=== PATIENT | female | born 1970 | race Two or more races ===

== ENCOUNTER 2021-01-17 04:32 | Day surgery (SDC) | payer BC ==
[2021-01-13 10:17] VITALS: BMI 23.1
[2021-01-17] MEDS ORDERED: ceFAZolin SODIUM 1 GM VIAL ONE (09:31)
[2021-01-17 09:34] LABS: BLOOD UREA NITROGEN 11.1 mg/dL (7-18)
[2021-01-17] MEDS ORDERED: PROMETHAZINE HCL 25 MG/1 ML VIAL IVPB PRN (09:35)
[2021-01-17] MEDS ORDERED: ONDANSETRON 4 MG/2 ML VIAL IVPUSH PRN ×2 (09:35→14:46)
[2021-01-17 09:37] LABS: CREATININE 1.1 mg/dL (0.55-1.3)
[2021-01-17] MEDS ORDERED: LACTATED RINGERS SOLUTION 1,000 ML IV SCH (09:45)
[2021-01-17] MEDS ORDERED: BUPIVACAINE HCL/PF 0.5% (5MG/ML) 10 ML VIAL ONE (10:16)
[2021-01-17] MEDS ORDERED: INDOCYANINE GREEN 25 MG/10 ML VIAL IVPUSH ONE (10:21)
[2021-01-17] MEDS ORDERED: PROPOFOL 20 ML ONE (11:16)
[2021-01-17] MEDS ORDERED: ROCURONIUM BROMIDE 50 MG/5 ML SYRINGE ONE ×2 (11:16→13:16)
[2021-01-17] MEDS ORDERED: LIDOCAINE HCL/PF 2% SDV 5ML VIAL ONE (11:16)
[2021-01-17] MEDS ORDERED: MIDAZOLAM HCL 2 MG/2 ML SINGLE DOSE VIAL ONE ×2 (11:35)
[2021-01-17] MEDS ORDERED: ceFAZolin SODIUM 1 GM VIAL IVPB ONE (12:03)
[2021-01-17] MEDS ORDERED: DEXAMETHASONE SOD PHOSPHATE 4 MG/1 ML VIAL ONE (12:04)
[2021-01-17] MEDS ORDERED: BUPIVACAINE HCL/PF 0.5% (5 MG/ML) 30 ML VIAL IJ ONE (12:15)
[2021-01-17] MEDS ORDERED: KETOROLAC TROMETHAMINE 30 MG/1 ML VIAL ONE (13:57)
[2021-01-17] MEDS ORDERED: GLYCOPYRROLATE 0.2 MG/1 ML VIAL ONE (14:03)
[2021-01-17] MEDS ORDERED: NEOSTIGMINE METHYLSULFATE 0.5 MG/ML - 10 ML MDV ONE (14:03)
[2021-01-17] MEDS ORDERED: oxyCODONE HCL 5 MG TABLET PO PRN ×2 (14:35→14:45)
[2021-01-17] MEDS ORDERED: ACETAMINOPHEN 1000 MG/100 ML VIAL (NON FORMULARY) IVPB ONE (14:41)
[2021-01-17] MEDS ORDERED: ACETAMINOPHEN INJECTION 100 ML IVPB ONE (14:50)
[2021-01-17] MEDS: ACETAMINOPHEN 500 MG TABLET (FP) PO SCH ×2 (14:50→21:11)
[2021-01-17] MEDS ORDERED: HYDROmorphone HCl 2 MG/ML VIAL IVPUSH ONE ×4 (15:20→16:20)
[2021-01-17] MEDS ORDERED: HYDROmorphone HCl 2 MG/ML VIAL ONE (15:25)
[2021-01-17] MEDS ORDERED: HYDROmorphone HCL CARPU-JECT 2 MG/1 ML DISP.SYRIN IVPUSH ONE (15:32)
[2021-01-17] MEDS ORDERED: CEFAZOLIN 2 GM/D5W 2 GM/50 ML ML IVPB ONE (15:45)
[2021-01-17] MEDS: CEFAZOLIN 1 GM/D5W 1 GM/50 ML BAG IVPB SCH (21:13)
[2021-01-17] MEDS ORDERED: KETOROLAC TROMETHAMINE 15 MG/ML VIAL IVPUSH SCH (23:00)
[2021-01-17] MEDS: KETOROLAC TROMETHAMINE 30 MG/1 ML VIAL IVPUSH SCH (23:55)
[2021-01-18] MEDS: CEFAZOLIN 1 GM/D5W 1 GM/50 ML BAG IVPB SCH (03:03)
[2021-01-18] MEDS: ACETAMINOPHEN 500 MG TABLET (FP) PO SCH ×2 (06:49→09:40)
[2021-01-18] MEDS: KETOROLAC TROMETHAMINE 30 MG/1 ML VIAL IVPUSH SCH (08:05)
[2021-01-18 09:42] LABS: HEMATOCRIT 28.7 % (32.4-45.2); HEMOGLOBIN 8.5 GM/dL (10.7-15.3); MCH 22.8 pg (25.7-33.7); MCHC 29.5 g/dl (32.0-36.0); MEAN CELL VOLUME 77.3 fl (80-96); MEAN PLT VOLUME 8.5 fl (7.5-11.1); PLATELET COUNT 373 10^3/uL (134-434); RBC 3.71 M/mm3 (3.60-5.2); RDW 33.6 % (11.6-15.6); WHITE BLOOD COUNT 14.6 K/mm3 (4.0-10.0)
[2021-01-18] MEDS ORDERED: PATIENT'S OWN MEDICATION (NON-FORMULARY) (Iron,Carb/Vit C/Vit B12/Folic [Iron 100 Plus Tab PO SCH (10:00)
[2021-01-18] MEDS ORDERED: ENOXAPARIN NA (PORCINE) 40 MG/0.4 ML DISP.SYRIN SQ SCH (10:00)
[2021-01-18] MEDS ORDERED: MULTIVITAMINS (DAILY MVI) TABLET (FP) PO SCH (10:00)
[2021-01-18 10:08] LABS: BLOOD UREA NITROGEN 15.7 mg/dL (7-18)
[2021-01-18 10:10] LABS: CREATININE 1.2 mg/dL (0.55-1.3)
[2021-01-18 10:23] LABS: CALCIUM 8.8 mg/dL (8.5-10.1)
[2021-01-18 14:10] LABS: MAGNESIUM 1.9 mg/dL (1.8-2.4)
[2021-01-18 14:14] LABS: PHOSPHOROUS 4.4 mg/dL (2.5-4.9)
[2021-01-18 16:44] VITALS: BP 112/53; PULSE 48; TEMP 97.7
== END 2021-01-18 16:45 | disposition home or self-care (01) ==
LOC: JASU-SURG 04:32 → JASUSAT 04:32 → J3W 17:32 → JASUSAT 01-18 16:45
PROVIDERS: ATTEND Obstetrics & Gynecology Gynecologic Oncology
PROC: 0UT7FZZ Resection of Bilateral Fallopian Tubes, Via Natural or Artificial Opening With Percutaneous Endoscopic Assistance (ICD-10-PCS; 2021-01-17)
PROC: 8E0W4CZ Robotic Assisted Procedure of Trunk Region, Percutaneous Endoscopic Approach (ICD-10-PCS; 2021-01-17)
PROC: 0UT9FZZ Resection of Uterus, Via Natural or Artificial Opening With Percutaneous Endoscopic Assistance (ICD-10-PCS; principal; 2021-01-17 10:30)
PROC: 0UT1FZZ Resection of Left Ovary, Via Natural or Artificial Opening With Percutaneous Endoscopic Assistance (ICD-10-PCS; 2021-01-17 10:30)
DX: N92.0 Excessive and frequent menstruation with regular cycle (principal); D25.9 Leiomyoma of uterus, unspecified; N83.202 Unspecified ovarian cyst, left side; N80.0 Endometriosis of uterus; D64.9 Anemia, unspecified
CPT/HCPCS: 36415; 80048; 81025; 83540; 83550; 83735; 84100; 84443; 85027; 86850; 86900; 86901; 88108; 88305-TC; 88307-TC; 93005; 93010; 94760; J0131

== ENCOUNTER → 2021-07-04 | Day surgery (SDC) | payer BC ==
[2021-07-03 12:20] VITALS: BMI 22.3
[~2021-07-04] MED LIST: PROPOFOL 20 ML ONE
[2021-07-04 12:03] VITALS: TEMP 98.1
[2021-07-04 12:46] VITALS: BP 107/50; PULSE 78
== END | disposition home or self-care (01) ==
LOC: FASU 10:38
PROVIDERS: ATTEND Internal Medicine Gastroenterology
PROC: 0DJD8ZZ Inspection of Lower Intestinal Tract, Via Natural or Artificial Opening Endoscopic (ICD-10-PCS; principal; 2021-07-04 11:32)
DX: Z12.11 Encounter for screening for malignant neoplasm of colon (principal); K64.0 First degree hemorrhoids